=== PATIENT | female | born 1965 | race Two or more races ===

== ENCOUNTER 2016-12-04 15:56 | Emergency (ER) | payer OTHER ==
[~2016-12-04] VITALS: Ht 134.6 cm; Wt 95.7 kg
[2016-12-04 16:12] VITALS: BP 120/79
[2016-12-04] MEDS ORDERED: ARTIFICIAL TEAR15 ML RIGHT EYE (16:22)
[2016-12-04 17:07] VITALS: BP 120/79
--- NOTE | 2016-12-04 21:34 | Emergency Room Report ---
History of Present Illness General Chief Complaint: Eye Problems Source: Patient Present Illness HPI The patient is a 51-year-old female with a history of hypertension and diabetes presenting for right eye redness which occurred at work today. The patient states that she was lifting a heavy tray while bent over and felt a sharp sensation of the right eye which then resolved. Patient states that she did not express any other symptoms and then someone pointed out that she had redness of the right eye. The patient states that she has 0/10 pain. She denies other symptoms including nausea, vomiting, fever, chills, dizziness, blurred vision Allergies: Coded Allergies: No Known Allergies (Unverified , 12/04/16) Patient History Past Medical History: see triage record Pertinent Family History: none Last Menstrual Period: on IUD Reviewed Nursing Documentation: PMH: Agreed, PSxH: Agreed Nursing Documentation-PMH Past Medical History: No History, Except For Hx Diabetes: Yes Review of Systems All Other Systems: negative except mentioned in HPI Physical Exam Vital Signs Date Time Temp Pulse Resp B/P Pulse Ox O2 Delivery O2 Flow Rate FiO2 12/04/16 16:06 97.9 85 17 120/79 97 Room Air Sp02 EP Interpretation: reviewed, normal General Appearance: no apparent distress, alert, GCS 15, non-toxic Head: normocephalic, atraumatic Eyes: right eye other - R eye medial to cornea: diffuse erythema., bilateral eye EOMI, bilateral eye PERRL ENT: hearing grossly normal, normal pharynx, no angioedema, normal voice Neck: full range of motion, supple/symm/no masses Respiratory: chest non-tender, lungs clear, normal breath sounds, speaking full sentences Neurologic: alert, oriented x3, responsive, motor strength/tone normal, sensory intact, speech normal Psychiatric: judgement/insight normal, memory normal, mood/affect normal, no suicidal/homicidal ideation Skin: normal color, no rash, warm/dry, well hydrated Lymphatic: no adenopathy Medical Decision Making PA Attestation Dr. Olivera is my supervising physician. Patient management was discussed with my supervising physician Diagnostic Impression: Primary Impression: Subconjunctival hemorrhage of right eye ER Course The patient is a 51-year-old female with a history of hypertension and diabetes presenting for right eye redness Differential diagnoses considered but not limited to subconjunctival hemorrhage , allergic conjunctivitis, bacterial conjunctivitis, viral conjunctivitis, blepharitiis, hordeolum PE: vitals WNL. R eye medial to cornea: diffuse erythema.No hyphema. PERRL. EOMI OD 20/40 OS 20/30 Pt will FU with PMD and co op. ER precautions given Last Vital Signs Date Time Temp Pulse Resp B/P Pulse Ox O2 Delivery O2 Flow Rate FiO2 12/04/16 17:07 97.9 17 120/79 97 Room Air 12/04/16 16:06 85 Status: improved Disposition: HOME, SELF-CARE Condition: Improved Scripts Dextran 70/Hypromellose (ARTIFICIAL TEARS EYE DROPS*) 15 Ml Drops 1 DROP RIGHT EYE PRN, #15 ML 0 Refills Prov: BETH MCKEON 12/04/16 Referrals: NOT CHOSEN IPA/MD,REFERRING (PCP) Patient Instructions: Subconjunctival Hemorrhage Additional Instructions: I discussed my findings with the patient. All questions and concerns have been answered. Treatment and medication compliance have been addressed. I advised the patient that they need to follow up with PMD in 3-5 days. Return to ED if symptoms worsen, new symptoms arise, or if needed for any reason. Patient verbalized understanding of discharge instructions. Please followup with lens molder and co op BETH MCKEON December 04, 2016 21:34
== END 2016-12-04 17:03 | disposition home or self-care (01) ==
LOC: EMR 16:20
DX: H11.31 Conjunctival hemorrhage, right eye (principal); I10 Essential (primary) hypertension; E11.9 Type 2 diabetes mellitus without complications; Z97.5 Presence of (intrauterine) contraceptive device
CPT/HCPCS: 99283